=== PATIENT | female | born 1950 | race Caucasian/White ===

== ENCOUNTER 2017-07-04 13:41 | Inpatient (IN) | payer OTHER, BC ==
[~2017-07-04] VITALS: Ht 167.6 cm; Wt 76.8 kg
[2017-07-04 15:07] LABS: HEMATOCRIT 45.1 % (36.0-46.0); HEMOGLOBIN 15.1 G/DL (11.9-15.5); MCHC 33.5 G/DL (30.0-36.0); MCV 92.6 FL (83-99); PLATELET COUNT 303 K/uL (156-360); RBC DIS.WIDTH-CV 11.9 % (11.8-14.6); RBC DIS.WIDTH-SD 40.1 % (39-53); RED BLOOD COUNT 4.87 M/uL (3.80-5.20); WHITE BLOOD COUNT 15.7 K/uL (4.1-10.2)
[2017-07-04 15:16] LABS: VENOUS PCO2 25 mm Hg (41-51)
[2017-07-04 15:23] LABS: CHLORIDE 100 mEq/L (99-109); POTASSIUM 5.3 mEq/L (3.7-5.4); SODIUM 128 mEq/L (136-147)
[2017-07-04 15:29] LABS: CREATININE 1.5 mg/dL (0.6-1.3)
[2017-07-04 15:30] LABS: UREA NITROGEN (BUN) 19 mg/dL (9-23)
[2017-07-04 15:32] LABS: GLUCOSE 518 mg/dL (70-99)
[2017-07-04 15:33] LABS: GFR ESTIMATE (CALCULATED) 37 mL/min/
[2017-07-04 16:08] LABS: HEMOGLOBIN A1c (GLYCOHEMOGLOB) 14.2 % HGB (Below 5.7)
[2017-07-04 16:45] VITALS: BP 110/92
[2017-07-04 17:11] LABS: MAGNESIUM 2.3 mg/dl (1.3-2.7)
[2017-07-04 19:00] VITALS: BP 133/72
[2017-07-04 19:51] LABS: APPEARANCE CLEAR ((CLEAR)); BILIRUBIN NEGATIVE; BLOOD MODERATE; COLOR STRAW ((YELLOW)); GLUCOSE (STRIP) >=500; KETONES 80; LEUKOCYTES NEGATIVE; NITRITE NEGATIVE; PROTEIN (STRIP) 30; SPECIFIC GRAVITY 1.016 (1.000-1.030); UROBILINOGEN 0.2 MG/DL (0.2-1.0)
[2017-07-04 19:59] LABS: BACTERIA RARE /HPF; EPITHELIAL CELLS RARE /HPF; MUCUS TRACE /LPF; RED BLOOD CELLS 0-5 /HPF (0-5); UCUL ADDED? NO; WHITE BLOOD CELLS 0-5 /HPF (0-5)
[2017-07-04 20:00] VITALS: BP 141/73
[2017-07-04 20:46] LABS: CHLORIDE 102 MEQ/L (99-109); CREATININE 0.7 MG/DL (0.6-1.3); GFR ESTIMATE (CALCULATED) > 59 mL/min/; GLUCOSE 326 mg/dL (70-99); PHOSPHORUS 2.9 mg/dL (2.5-4.9); POTASSIUM 4.4 MEQ/L (3.7-5.4); SODIUM 132 MEQ/L (136-147); UREA NITROGEN (BUN) 16 mg/dL (9-23)
[2017-07-04 20:47] LABS: CARBON DIOXIDE (BICARBONATE) < 10.0 MEQ/L (20-31)
[2017-07-04 21:00] VITALS: BP 141/81
[2017-07-04 22:00] VITALS: BP 132/94
[2017-07-04 23:00] VITALS: BP 139/76
[2017-07-05] VITALS (22 sets, daily range): BP systolic 91–140; BP diastolic 52–80
[2017-07-05 00:46] LABS: CHLORIDE 110 mEq/L (99-109); POTASSIUM 3.7 mEq/L (3.7-5.4); SODIUM 133 mEq/L (136-147)
[2017-07-05 00:47] LABS: GLUCOSE 257 mg/dL (70-99)
[2017-07-05 00:51] LABS: CREATININE 1.1 mg/dL (0.6-1.3); GFR ESTIMATE (CALCULATED) 52 mL/min/; PHOSPHORUS 1.8 mg/dL (2.5-4.9)
[2017-07-05 00:52] LABS: UREA NITROGEN (BUN) 17 mg/dL (9-23)
[2017-07-05 04:22] LABS: CHLORIDE 112 mEq/L (99-109); POTASSIUM 3.6 mEq/L (3.7-5.4); SODIUM 133 mEq/L (136-147)
[2017-07-05 04:23] LABS: BASOPHIL (%) 0.1 % (0-1); EOSINOPHIL (%) 0 % (0-5); HEMOGLOBIN 13.5 G/DL (11.9-15.5); IMMATURE GRANULOCYTE (%) 0.7 % (0.0-0.7); LYMPHOCYTE (%) 12.4 % (15-42); LYMPHOCYTE COUNT 1.3 K/uL (1.0-2.8); MCH 30.5 PG (29.0-34.0); MCHC 34.6 G/DL (30.0-36.0); MONOCYTE (%) 12.5 % (3-12); MONOCYTE COUNT 1.3 K/uL (0-0.8); NEUTROPHIL (%) 74.3 % (45-76); NEUTROPHIL COUNT 7.5 K/uL (1.8-6.4); RBC DIS.WIDTH-CV 11.9 % (11.8-14.6); RBC DIS.WIDTH-SD 38.2 % (39-53); RED BLOOD COUNT 4.43 M/uL (3.80-5.20); WHITE BLOOD COUNT 10.1 K/uL (4.1-10.2)
[2017-07-05 04:24] LABS: GLUCOSE 194 mg/dL (70-99)
[2017-07-05 04:28] LABS: GFR ESTIMATE (CALCULATED) 59 mL/min/
[2017-07-05 04:29] LABS: UREA NITROGEN (BUN) 14 mg/dL (9-23)
[2017-07-05 04:31] LABS: PHOSPHORUS 1.1 mg/dL (2.5-4.9)
[2017-07-05 04:56] LABS: PLAT.SUFFICIENCY ADEQUATE
[2017-07-05 06:13] LABS: PLATELET COUNT 196 K/uL (156-360)
[2017-07-05 08:15] LABS: CHLORIDE 109 MEQ/L (99-109); CREATININE 0.6 MG/DL (0.6-1.3); GFR ESTIMATE (CALCULATED) > 59 mL/min/; GLUCOSE 211 mg/dL (70-99); PHOSPHORUS 1.2 mg/dL (2.5-4.9); POTASSIUM 3.5 MEQ/L (3.7-5.4); SODIUM 134 MEQ/L (136-147); UREA NITROGEN (BUN) 13 mg/dL (9-23)
[2017-07-05 12:43] LABS: CHLORIDE 107 MEQ/L (99-109); CREATININE 0.6 MG/DL (0.6-1.3); GFR ESTIMATE (CALCULATED) > 59 mL/min/; GLUCOSE 245 mg/dL (70-99); PHOSPHORUS 1.4 mg/dL (2.5-4.9); POTASSIUM 3.2 MEQ/L (3.7-5.4); SODIUM 134 MEQ/L (136-147); UREA NITROGEN (BUN) 12 mg/dL (9-23)
[2017-07-05 16:23] LABS: CHLORIDE 106 MEQ/L (99-109); CREATININE 0.6 MG/DL (0.6-1.3); GFR ESTIMATE (CALCULATED) > 59 mL/min/; GLUCOSE 200 mg/dL (70-99); PHOSPHORUS 1.4 mg/dL (2.5-4.9); POTASSIUM 2.9 MEQ/L (3.7-5.4); SODIUM 132 MEQ/L (136-147); UREA NITROGEN (BUN) 10 mg/dL (9-23)
[2017-07-05 19:19] LABS: CHLORIDE 108 mEq/L (99-109); POTASSIUM 2.9 mEq/L (3.7-5.4); SODIUM 132 mEq/L (136-147)
[2017-07-05 19:21] LABS: GLUCOSE 220 mg/dL (70-99)
[2017-07-05 19:25] LABS: CREATININE 0.8 mg/dL (0.6-1.3); GFR ESTIMATE (CALCULATED) > 59 mL/min/
[2017-07-05 19:26] LABS: UREA NITROGEN (BUN) 10 mg/dL (9-23)
[2017-07-06] VITALS (23 sets, daily range): BP systolic 101–153; BP diastolic 61–99
[2017-07-06 09:26] LABS: BASOPHIL (%) 0 % (0-1); EOSINOPHIL (%) 0 % (0-5); HEMATOCRIT 36.5 % (36.0-46.0); HEMOGLOBIN 13.3 G/DL (11.9-15.5); IMMATURE GRANULOCYTE (%) 0.3 % (0.0-0.7); LYMPHOCYTE (%) 10.7 % (15-42); LYMPHOCYTE COUNT 0.8 K/uL (1.0-2.8); MCH 31.2 PG (29.0-34.0); MCHC 36.4 G/DL (30.0-36.0); MCV 85.7 FL (83-99); MONOCYTE (%) 12.3 % (3-12); MONOCYTE COUNT 0.9 K/uL (0-0.8); NEUTROPHIL (%) 76.7 % (45-76); NEUTROPHIL COUNT 5.4 K/uL (1.8-6.4); PLATELET COUNT 165 K/uL (156-360); RBC DIS.WIDTH-CV 12.2 % (11.8-14.6); RED BLOOD COUNT 4.26 M/uL (3.80-5.20)
[2017-07-06 09:48] LABS: CHLORIDE 109 MEQ/L (99-109); CREATININE 0.4 MG/DL (0.6-1.3); GFR ESTIMATE (CALCULATED) > 59 mL/min/; PHOSPHORUS 1.1 mg/dL (2.5-4.9); POTASSIUM 2.5 MEQ/L (3.7-5.4); SODIUM 138 MEQ/L (136-147); UREA NITROGEN (BUN) 6 mg/dL (9-23)
[2017-07-06 09:50] LABS: GLUCOSE 116 mg/dL (70-99)
[2017-07-06 09:51] LABS: MAGNESIUM 1.9 mg/dl (1.3-2.7)
[2017-07-06 14:12] LABS: CHLORIDE 110 MEQ/L (99-109); CREATININE 0.4 MG/DL (0.6-1.3); GFR ESTIMATE (CALCULATED) > 59 mL/min/; POTASSIUM 2.9 MEQ/L (3.7-5.4); SODIUM 137 MEQ/L (136-147); UREA NITROGEN (BUN) 5 mg/dL (9-23)
[2017-07-06 14:13] LABS: GLUCOSE 196 mg/dL (70-99)
[2017-07-06 20:16] LABS: CHLORIDE 107 MEQ/L (99-109); CREATININE 0.4 MG/DL (0.6-1.3); GFR ESTIMATE (CALCULATED) > 59 mL/min/; GLUCOSE 247 mg/dL (70-99); POTASSIUM 3.1 MEQ/L (3.7-5.4); SODIUM 134 MEQ/L (136-147); UREA NITROGEN (BUN) 5 mg/dL (9-23)
[2017-07-07] VITALS (13 sets, daily range): BP systolic 116–155; BP diastolic 64–81
[2017-07-07 06:25] LABS: BASOPHIL (%) 0.2 % (0-1); EOSINOPHIL (%) 0 % (0-5); HEMATOCRIT 33.1 % (36.0-46.0); HEMOGLOBIN 11.6 G/DL (11.9-15.5); IMMATURE GRANULOCYTE (%) 0.6 % (0.0-0.7); LYMPHOCYTE (%) 20.6 % (15-42); MCV 85.5 FL (83-99); MONOCYTE (%) 9.4 % (3-12); MONOCYTE COUNT 0.5 K/uL (0-0.8); NEUTROPHIL (%) 69.2 % (45-76); NEUTROPHIL COUNT 3.4 K/uL (1.8-6.4); PLATELET COUNT 166 K/uL (156-360); RBC DIS.WIDTH-CV 12.2 % (11.8-14.6); RBC DIS.WIDTH-SD 38.5 % (39-53); RED BLOOD COUNT 3.87 M/uL (3.80-5.20); WHITE BLOOD COUNT 4.9 K/uL (4.1-10.2)
[2017-07-07 06:48] LABS: CHLORIDE 108 MEQ/L (99-109); CREATININE 0.4 MG/DL (0.6-1.3); GFR ESTIMATE (CALCULATED) > 59 mL/min/; GLUCOSE 172 mg/dL (70-99); MAGNESIUM 1.8 mg/dl (1.3-2.7); POTASSIUM 2.6 MEQ/L (3.7-5.4); UREA NITROGEN (BUN) 3 mg/dL (9-23)
[2017-07-07 06:51] LABS: PHOSPHORUS 1.9 mg/dL (2.5-4.9); SODIUM 141 MEQ/L (136-147)
[2017-07-08 00:35] VITALS: BP 157/73
[2017-07-08 07:30] VITALS: BP 141/69
[2017-07-08 09:32] LABS: CHLORIDE 105 MEQ/L (99-109); SODIUM 144 MEQ/L (136-147)
[2017-07-08 09:37] LABS: CREATININE 0.5 MG/DL (0.6-1.3); GFR ESTIMATE (CALCULATED) > 59 mL/min/; GLUCOSE 126 mg/dL (70-99); PHOSPHORUS 2.2 mg/dL (2.5-4.9); UREA NITROGEN (BUN) 4 mg/dL (9-23)
[2017-07-08 12:00] VITALS: BP 124/58
[2017-07-08 16:05] VITALS: BP 149/65
[2017-07-08 17:14] VITALS: BP 71/46
[2017-07-08 19:30] VITALS: BP 122/69
[2017-07-09 06:33] VITALS: BP 146/70
[2017-07-09 07:04] LABS: BASOPHIL (%) 0.2 % (0-1); EOSINOPHIL (%) 0.4 % (0-5); HEMATOCRIT 34.9 % (36.0-46.0); HEMOGLOBIN 11.9 G/DL (11.9-15.5); IMMATURE GRANULOCYTE (%) 0.4 % (0.0-0.7); LYMPHOCYTE (%) 26.6 % (15-42); LYMPHOCYTE COUNT 1.2 K/uL (1.0-2.8); MCH 30.1 PG (29.0-34.0); MCHC 34.1 G/DL (30.0-36.0); MCV 88.1 FL (83-99); MONOCYTE (%) 14.4 % (3-12); MONOCYTE COUNT 0.7 K/uL (0-0.8); NEUTROPHIL COUNT 2.7 K/uL (1.8-6.4); PLATELET COUNT 208 K/uL (156-360); RBC DIS.WIDTH-CV 11.9 % (11.8-14.6); RBC DIS.WIDTH-SD 38.5 % (39-53); RED BLOOD COUNT 3.96 M/uL (3.80-5.20); WHITE BLOOD COUNT 4.6 K/uL (4.1-10.2)
[2017-07-09 07:45] LABS: CHLORIDE 102 MEQ/L (99-109); CREATININE 0.5 MG/DL (0.6-1.3); GFR ESTIMATE (CALCULATED) > 59 mL/min/; GLUCOSE 158 mg/dL (70-99); POTASSIUM 2.8 MEQ/L (3.7-5.4); SODIUM 143 MEQ/L (136-147); UREA NITROGEN (BUN) 6 mg/dL (9-23)
[2017-07-09 07:46] LABS: PHOSPHORUS 3.4 mg/dL (2.5-4.9)
[2017-07-09] MEDS ORDERED: AMOX TR-K CLV1 EAC4 PO (13:15)
[2017-07-09] MEDS ORDERED: METFORMIN HCL500 M4 PO (13:15)
[2017-07-09] MEDS ORDERED: LEVEMIR100 UNIT/2 SC (13:15)
[2017-07-09 16:04] VITALS: BP 137/64
== END 2017-07-09 18:30 | disposition home or self-care (01) | DRG 638 ==
LOC: EME 13:41 → EDOF 15:40 → 4WEST 15:40 → 2EASTP 15:40 → ENRESERV 15:47 → 4WEST 16:22 → ENRESERV 07-07 10:21 → 2EASTP 07-08 00:35
PROVIDERS: Emergency Medicine; Hospitalist; Internal Medicine; Specialist
DX: E11.10 Type 2 diabetes mellitus with ketoacidosis without coma (principal); N17.9 Acute kidney failure, unspecified; E87.6 Hypokalemia; E83.39 Other disorders of phosphorus metabolism; J32.0 Chronic maxillary sinusitis; I10 Essential (primary) hypertension; Z91.14 Patient's other noncompliance with medication regimen; Z83.3 Family history of diabetes mellitus
CPT/HCPCS: 70450; 71045; 71046; 80048; 80048 91; 81003; 82010; 82803; 82948; 83036; 83605; 83735; 84100; 84132 91; 85025; 85027; 87081; 87641; 93005; 99281; 99284; J0295; J0456; J1644; J1815; J3475; J7030; J7040; J7050; J7070